=== PATIENT | female | born 1940 | race Caucasian/White ===

== ENCOUNTER 2018-07-13 06:45 | Day surgery (SDC) | payer MEDICARE, BC ==
[2018-07-12 12:40] VITALS: BMI 25.4
[~2018-07-13 06:45] MED LIST: Fluorouracil 100 MG, Enoxaparin Sodium 25 MG, EPINEPHrine 0.3 MG in Ophthalmic Irrigati... IVPB SCH
[2018-07-13] MEDS ORDERED: Phenylephrine 2.5% Ophth Soln 5 ML BOT ONE (07:18)
[2018-07-13] MEDS ORDERED: Cyclopentolate 1% Opth Drop 2 ML BOT ONE (07:18)
[2018-07-13] MEDS ORDERED: Fentanyl 100 MCG/2 ML VIAL ONE (08:14)
[2018-07-13] MEDS ORDERED: Midazolam HCl 2 mg/2 ml Vial ONE (08:14)
[2018-07-13] MEDS ORDERED: PROPOFOL 200 MG/20 ML VIAL ONE (11:48)
[2018-07-13] MEDS ORDERED: CEFAZOLIN 1 GM VIAL ONE (11:48)
[2018-07-13] MEDS ORDERED: Dexamethasone 20 MG/5 ML VIAL ONE (11:48)
[2018-07-13] MEDS ORDERED: Triamcinolone 40 MG/ML VIAL ONE (11:48)
[2018-07-13] MEDS ORDERED: Lidocaine 4% PF 5 ML AMP ONE (11:48)
[2018-07-13] MEDS ORDERED: Lidocaine 1% PF 5 ML VIAL ONE ×2 (11:48)
[2018-07-13] MEDS ORDERED: ePHEDrine/0.9% NaCl/PF SYRINGE 50 mg/10 ml ONE (11:48)
[2018-07-13] MEDS ORDERED: Bupivacaine 0.75% 10 ML AMP ONE (11:48)
[2018-07-13] MEDS ORDERED: Ondansetron PF 4 MG/2 ML Vial ONE (11:48)
[2018-07-13] MEDS ORDERED: Maxitrol 0.1% Opth Oint 3.5 GM TUBE ONE (11:48)
[2018-07-13] MEDS ORDERED: Acetylcholine 20 MG/2 ML VIAL (OR CHARGE) ONE (11:48)
--- NOTE | 2018-07-13 12:18 | OP ---
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 PROCEDURE: Pars plana vitrectomy, lensectomy, secondary intraocular lens, right eye. ANESTHESIA: General endotracheal anesthesia. COMPLICATIONS: None. PROCEDURE IN DETAIL: The patient was identified in the preoperative holding area. Appropriate informed consent for planned surgical procedure on the right eye had been obtained. The patient was transported to the operative suite. Appropriate cardiopulmonary monitoring was established. General endotracheal anesthesia was initiated. Retrobulbar anesthesia was obtained using block. The patient was prepped and draped in the usual sterile manner for ophthalmic surgery on the right eye. Lid speculum was placed in the right eye. Superior temporal periotomy was created with sharp dissection with An scissors. Supratemporal scleral tunnel incision was created. Trocars were placed supratemporally, inferotemporally, and supranasally. Infusion line was placed inferotemporally. Light pipe and vitreous cutter were inserted into the eye. Core vitrectomy was performed. The lens fragments were noted and the nuclear fragment noted on the posterior pole. A 20 gauge sclerotomy was created supratemporally and fragmatome was inserted into the eye and the lens fragments were emulsified and removed. 20 gauge sclerotomy was sutured closed. Eye was entered superiorly using a 3.0 keratome and 18.5 diopter TG0273 intraocular lens was inserted into the eye. Haptics were externalized in the anatomy technique and the IOL was noted to centered well, Miochol was inserted into the eye and the pupil was constricted. A 360 laser was placed using endolaser delivery device. Trocars were removed. Sclerotomies were sutured closed. Conjunctiva was closed with 6-0 plain gut suture. Retrobulbar Kenalog and subconjunctival Ancef were placed. Atropine and antibiotic ointment placed, and the eye was patched and shielded. Patient was taken to the postoperative recovery unit in good condition having suffered no immediate complications. DISCHARGE INSTRUCTIONS: The patient was instructed to keep patch shield on, avoid lifting or bending, and follow up in the morning with Dr. Liu. ORLIN
== END 2018-07-13 12:10 | disposition home or self-care (01) ==
LOC: SDC 06:45
PROVIDERS: ATTEND Ophthalmology Retina Specialist
PROC: 08943ZZ Drainage of Right Vitreous, Percutaneous Approach (ICD-10-PCS; principal; 2018-07-13)
PROC: 08RJ3JZ Replacement of Right Lens with Synthetic Substitute, Percutaneous Approach (ICD-10-PCS; 2018-07-13)
DX: H27.01 Aphakia, right eye (principal); H59.021 Cataract (lens) fragments in eye following cataract surgery, right eye; Z91.013 Allergy to seafood; Z88.5 Allergy status to narcotic agent; Z91.041 Radiographic dye allergy status
CPT/HCPCS: C1780; J0171; J0690; J1100; J1650; J2001; J2250; J2405; J2704; J3010; J3301; J3490; J9190